=== PATIENT | female | born 1955 | race African-American/Black ===

== ENCOUNTER 2023-03-28 21:30 | Inpatient (IN) | payer MEDICARE, MEDICAID ==
[~2023-03-28] VITALS: Ht 152.4 cm; Wt 54.0 kg
[2023-03-28 22:11] LABS: BASOPHILS % (AUTO) 0.4 % (0.0-2.0); EOSINOPHILS % (AUTO) 1.5 % (1.0-6.0); HEMATOCRIT 41.3 % (36-46); HEMOGLOBIN 12.9 g/dL (12.0-16.0); LYMPHOCYTES # (AUTO) 2.6 K/uL (1.0-4.8); LYMPHOCYTES % (AUTO) 41.5 % (22.0-44.0); MEAN CORPUSCULAR HEMOGLOBIN 27.9 pg (26.0-34.0); MEAN CORPUSCULAR HGB CONC 31.3 G/dL (31.0-37.0); MEAN CORPUSCULAR VOLUME 89 fL (80-100); MONOCYTES # (AUTO) 0.5 K/uL (0.1-1.0); MONOCYTES % (AUTO) 7.5 % (2.0-9.0); NEUTROPHILS % (AUTO) 49.1 % (40.0-70.0); PLATELET COUNT (AUTO) 217 K/uL (150-450); RED BLOOD CELL COUNT(AUTO) 4.64 MIL/uL (4.00-5.20); RED CELL DISTRIBUTION WIDTH 17.7 % (11.5-14.5)
[2023-03-28 22:23] LABS: ANION GAP 8 mmol/L (8-16); CALCIUM, TOTAL 8.7 mg/dL (8.8-10.5); CARBON DIOXIDE 27 mmol/L (22-29); CHLORIDE 105 mmol/L (98-107); CREATININE 1.03 mg/dL (0.60-1.30); GLOMERULAR FILTR. RATE CALC > 60 mL/min (>60); GLUCOSE,RANDOM 130 mg/dL (70-110); POTASSIUM 3.6 mmol/L (3.5-5.1); SODIUM SERUM 140 mmol/L (136-145)
[2023-03-28 22:29] LABS: ALANINE AMINOTRANSFERASE 47 U/L (12-78); ALBUMIN 3.3 g/dL (3.4-5.0); ALKALINE PHOSPHATASE 108 U/L (46-116); ASPARTATE AMINOTRANSFERASE 28 U/L (15-37); BILIRUBIN,TOTAL 0.3 mg/dL (0.1-1.0); TOTAL PROTEIN, SERUM 6.9 g/dL (6.4-8.2)
[2023-03-28 22:32] LABS: AMPHET/METH SCREEN,URINE NEGATIVE (NEGATIVE); BARBITURATE SCREEN, URINE NEGATIVE (NEGATIVE); BENZODIAZEPINES SCREEN,URINE NEGATIVE (NEGATIVE); CANNABINOID SCREEN,URINE NEGATIVE (NEGATIVE); COCAINE SCREEN,URINE NEGATIVE (NEGATIVE); METHADONE SCREEN, URINE NEGATIVE (NEGATIVE); OPIATE SCREEN,URINE NEGATIVE (NEGATIVE); PHENCYCLIDINE SCREEN,URINE NEGATIVE (NEGATIVE)
[2023-03-28 23:23] LABS: COVID AG,FIA SOURCE NASAL SWAB
[2023-03-29] MEDS ORDERED: ZOLPIDEM TARTRATE 10 MG TABLET PO PRN (04:45)
[2023-03-29] MEDS ORDERED: LORazepam 2 MG TABLET PO PRN (04:45)
[2023-03-29] MEDS ORDERED: HALOPERIDOL 5 MG TABLET PO PRN (04:45)
[2023-03-29 09:45] VITALS: BP 122/89; PULSE 88; RESP 18; TEMP 97.2; O2SAT 100
[2023-03-29 21:34] VITALS: BP 152/83; PULSE 87; RESP 18; TEMP 98.3; O2SAT 99
[2023-03-29] MEDS ORDERED: MAG HYDROX/AL HYDROX/SIMETH ES 30 ML SUSPENSION UDCUP PO PRN (23:15)
[2023-03-29] MEDS ORDERED: IBUPROFEN 600 MG TABLET PO PRN (23:15)
[2023-03-29] MEDS ORDERED: ALBUTEROL SULFATE HFA 90 MCG/PUFF 8 GM INHALER IH PRN (23:15)
[2023-03-29] MEDS ORDERED: LOPERAMIDE HCL 2 MG CAPSULE PO PRN (23:15)
[2023-03-29] MEDS ORDERED: PETROLATUM,WHITE 28 GM JELLY TP PRN (23:15)
[2023-03-29] MEDS ORDERED: CloNIDine HCL 0.1 MG TABLET PO PRN (23:15)
[2023-03-29] MEDS ORDERED: ACETAMINOPHEN 325 MG TABLET PO PRN (23:15)
[2023-03-29] MEDS ORDERED: MAGNESIUM HYDROXIDE SUSPENSION 30 ML UDCUP PO PRN (23:15)
[2023-03-29] MEDS ORDERED: OMEPRAZOLE 20 MG CAPSULE PO PRN (23:15)
[2023-03-29] MEDS ORDERED: BACITRACIN 28 GM OINTMENT TP PRN (23:15)
[2023-03-29] MEDS ORDERED: ONDANSETRON HCL 4 MG TABLET PO PRN (23:15)
[2023-03-29] MEDS ORDERED: DOCUSATE SODIUM 100 MG CAPSULE PO PRN (23:15)
[2023-03-30 08:34] VITALS: BP 130/86; PULSE 95; RESP 17; TEMP 97.5; O2SAT 96
[2023-03-30 20:15] VITALS: BP 145/90; PULSE 91; RESP 18; TEMP 97.6; O2SAT 96
[2023-03-31 09:23] VITALS: BP 133/80; PULSE 92; RESP 18; TEMP 98.2; O2SAT 97
[2023-03-31 21:49] VITALS: BP 147/99; PULSE 99; RESP 16; TEMP 96.7; O2SAT 98
[2023-04-01 08:17] VITALS: BP 110/61; PULSE 62; RESP 18; TEMP 97.9; O2SAT 96
[2023-04-01] MEDS: RisperiDONE 0.5 MG TABLET PO SCH (16:04)
[2023-04-01 21:37] VITALS: BP 121/73; PULSE 89; RESP 18; TEMP 97.8; O2SAT 98
[2023-04-02 08:34] VITALS: BP 140/90; PULSE 100; RESP 17; TEMP 97.6
[2023-04-02] MEDS: RisperiDONE 0.5 MG TABLET PO SCH ×2 (09:23→16:30)
[2023-04-02 20:51] VITALS: BP 134/90; RESP 18; TEMP 97.1
[2023-04-02 21:58] LABS: APPEARANCE,URINE CLEAR (CLEAR); BILIRUBIN,URINE NEGATIVE (NEGATIVE); GLUCOSE, URINE (UA) NEGATIVE (NEGATIVE); KETONES,URINE NEGATIVE (NEGATIVE); LEUKOCYTE ESTERASE ,URINE LARGE (NEGATIVE); NITRATE,URINE NEGATIVE (NEGATIVE); OCCULT BLOOD,URINE NEGATIVE (NEGATIVE); PH,URINE 6.5 (5.0-8.0); PROTEIN,URINE NEGATIVE (NEGATIVE); SPECIFIC GRAVITIY, URINE 1.017 (1.003-1.030); UROBILINOGEN,URINE <=1.0 mg/dL (<=1.0)
[2023-04-02 22:15] LABS: BACTERIA,URINE Rare /HPF (None Seen); RBC,URINE None Seen /HPF (0-2); SQUAMOUS EPITHELIAL CELL,UR Rare /LPF (None Seen)
[2023-04-03 08:00] VITALS: BP 124/72; PULSE 89; RESP 18; TEMP 97.2; O2SAT 97
[2023-04-03] MEDS: RisperiDONE 0.5 MG TABLET PO SCH ×2 (09:47→17:52)
[2023-04-03 21:10] VITALS: BP 129/81; PULSE 96; RESP 18; TEMP 97; O2SAT 98
[2023-04-04 08:00] VITALS: BP 139/81; PULSE 90; RESP 18; TEMP 98; O2SAT 100
[2023-04-04] MEDS: RisperiDONE 0.5 MG TABLET PO SCH ×2 (09:01→16:24)
[2023-04-04 20:29] VITALS: RESP 17
[2023-04-05] MEDS: RisperiDONE 0.5 MG TABLET PO SCH ×2 (09:10→16:38)
[2023-04-05 09:35] VITALS: BP 143/90; PULSE 102; RESP 18; TEMP 97.6
[2023-04-05 21:34] VITALS: BP 131/75; PULSE 102; RESP 17; TEMP 97.9
[2023-04-06] MEDS: RisperiDONE 0.5 MG TABLET PO SCH ×2 (08:32→16:34)
[2023-04-06 09:17] VITALS: BP 123/70; PULSE 83; RESP 18; TEMP 97.1; O2SAT 98
[2023-04-06 20:30] VITALS: BP 149/62; PULSE 85; RESP 18; TEMP 98.2; O2SAT 96
[2023-04-07 08:00] VITALS: BP 121/81; PULSE 79; RESP 18; TEMP 97.9; O2SAT 97
[2023-04-07] MEDS: RisperiDONE 0.5 MG TABLET PO SCH ×2 (09:04→17:42)
[2023-04-07 21:18] VITALS: BP 129/77; PULSE 89; RESP 18; TEMP 97.2; O2SAT 100
[2023-04-08] MEDS: RisperiDONE 0.5 MG TABLET PO SCH ×2 (08:49→16:05)
[2023-04-08 09:38] VITALS: BP 139/86; PULSE 98; RESP 19; TEMP 97.3; O2SAT 98
[2023-04-08 20:58] VITALS: BP 124/78; PULSE 97; RESP 18; TEMP 97.2; O2SAT 100
[2023-04-09] MEDS: RisperiDONE 0.5 MG TABLET PO SCH ×2 (08:36→16:06)
[2023-04-09 09:12] VITALS: BP 120/73; PULSE 97; RESP 18; TEMP 97.7
[2023-04-09 21:29] VITALS: BP 121/76; PULSE 98; RESP 17; TEMP 97.4
[2023-04-10] MEDS: RisperiDONE 0.5 MG TABLET PO SCH ×2 (08:08→17:19)
[2023-04-10 09:12] VITALS: BP 133/95; PULSE 109; RESP 18; TEMP 97.6; O2SAT 97
[2023-04-10 22:08] VITALS: RESP 17
[2023-04-11] MEDS: RisperiDONE 0.5 MG TABLET PO SCH ×2 (08:08→16:26)
[2023-04-11 09:01] VITALS: BP 117/93; PULSE 79; RESP 16; TEMP 98.1; O2SAT 98
[2023-04-11 20:30] VITALS: RESP 18
[2023-04-12 08:15] VITALS: BP 137/72; PULSE 100; RESP 18; TEMP 97.2; O2SAT 96
[2023-04-12] MEDS: RisperiDONE 0.5 MG TABLET PO SCH ×2 (08:15→16:29)
[2023-04-12 21:34] VITALS: BP 141/86; PULSE 93; RESP 18; TEMP 97.3; O2SAT 99
[2023-04-13] MEDS: RisperiDONE 0.5 MG TABLET PO SCH ×2 (08:59→16:23)
[2023-04-13 09:14] VITALS: BP 146/87; PULSE 96; RESP 17; TEMP 97.2; O2SAT 100
[2023-04-13 20:30] VITALS: BP 122/86; PULSE 81; RESP 18; TEMP 97.6; O2SAT 100
[2023-04-14] MEDS: RisperiDONE 0.5 MG TABLET PO SCH ×2 (08:18→15:56)
[2023-04-14 10:36] VITALS: BP 136/70; PULSE 104; RESP 18; TEMP 97.4; O2SAT 98
[2023-04-14 23:18] VITALS: BP 111/71; PULSE 102; RESP 16; TEMP 97.4; O2SAT 98
[2023-04-15] MEDS: RisperiDONE 0.5 MG TABLET PO SCH ×2 (08:41→16:02)
[2023-04-15 10:13] VITALS: BP 136/79; PULSE 89; RESP 17; TEMP 97.4; O2SAT 100
[2023-04-15 22:08] VITALS: RESP 18
[2023-04-16 08:00] VITALS: BP 120/70; PULSE 70; RESP 18; TEMP 98; O2SAT 96
[2023-04-16] MEDS: RisperiDONE 0.5 MG TABLET PO SCH ×2 (08:38→16:33)
[2023-04-16 21:24] VITALS: BP 128/72; PULSE 81; RESP 19; TEMP 97.9; O2SAT 97
[2023-04-17 09:00] VITALS: BP 127/73; PULSE 100; RESP 18; TEMP 97
[2023-04-17] MEDS: RisperiDONE 0.5 MG TABLET PO SCH ×2 (09:35→16:46)
[2023-04-17 20:58] VITALS: BP 138/83; PULSE 68; RESP 17; TEMP 97.4; O2SAT 98
[2023-04-18 08:20] VITALS: BP 131/89; PULSE 112; RESP 18; TEMP 96.8
[2023-04-18] MEDS: RisperiDONE 0.5 MG TABLET PO SCH ×2 (08:44→16:24)
[2023-04-18 09:51] VITALS: BP 131/89; PULSE 112; RESP 18; TEMP 96.8; O2SAT 97
[2023-04-18 20:21] VITALS: BP 133/77; PULSE 96; RESP 18; TEMP 98.1; O2SAT 98
[2023-04-19 08:00] VITALS: BP 125/83; PULSE 123; RESP 16; TEMP 97.2; O2SAT 96
[2023-04-19] MEDS: RisperiDONE 0.5 MG TABLET PO SCH ×2 (08:35→17:41)
[2023-04-19 21:10] VITALS: BP 162/88; PULSE 99; RESP 16; TEMP 98
[2023-04-20 08:00] VITALS: BP 166/77; PULSE 108; RESP 19; TEMP 97.4; O2SAT 98
[2023-04-20] MEDS: RisperiDONE 0.5 MG TABLET PO SCH ×2 (09:17→16:17)
[2023-04-20 21:24] VITALS: BP 134/73; PULSE 94; RESP 18; TEMP 98.1; O2SAT 98
[2023-04-21] MEDS: RisperiDONE 0.5 MG TABLET PO SCH ×2 (07:56→15:56)
[2023-04-21 08:00] VITALS: BP 144/77; PULSE 97; RESP 17; TEMP 97.3; O2SAT 98
[2023-04-21 21:06] VITALS: BP 126/69; PULSE 91; RESP 17; TEMP 97.8; O2SAT 99
[2023-04-22 09:46] VITALS: BP 125/73; PULSE 98; RESP 18; TEMP 97.5; O2SAT 95
[2023-04-22] MEDS: RisperiDONE 0.5 MG TABLET PO SCH ×2 (09:53→17:07)
[2023-04-22 21:15] VITALS: BP 138/83; PULSE 95; RESP 17; TEMP 96.9; O2SAT 100
[2023-04-23] MEDS: RisperiDONE 0.5 MG TABLET PO SCH ×2 (08:15→16:33)
[2023-04-23 10:23] VITALS: BP 123/71; PULSE 95; RESP 18; TEMP 97.8; O2SAT 98
[2023-04-23 20:36] VITALS: BP 120/77; PULSE 92; RESP 18; TEMP 97.7
[2023-04-24 08:00] VITALS: BP 133/79; PULSE 111; RESP 18; TEMP 97.7; O2SAT 97
[2023-04-24] MEDS: RisperiDONE 0.5 MG TABLET PO SCH ×2 (10:24→17:09)
[2023-04-24 20:17] VITALS: BP 115/76; PULSE 85; RESP 16; TEMP 97.5; O2SAT 98
[2023-04-25] MEDS: MEMANTINE HCL 5 MG TABLET PO SCH ×2 (08:24→16:19)
[2023-04-25] MEDS: RisperiDONE 0.5 MG TABLET PO SCH ×2 (08:24→16:19)
[2023-04-25 10:14] VITALS: BP 160/83; PULSE 86; RESP 18; TEMP 97.3; O2SAT 98
[2023-04-25 20:25] VITALS: BP 137/84; PULSE 93; RESP 18; TEMP 97.2; O2SAT 99
[2023-04-26] MEDS: RisperiDONE 0.5 MG TABLET PO SCH ×2 (08:36→16:15)
[2023-04-26] MEDS: MEMANTINE HCL 5 MG TABLET PO SCH ×2 (08:36→16:15)
[2023-04-26 08:55] VITALS: BP 148/90; PULSE 90; RESP 19; TEMP 97.4; O2SAT 99
[2023-04-26 21:16] VITALS: BP 119/63; PULSE 90; RESP 18; TEMP 97.4; O2SAT 98
[2023-04-27] MEDS: RisperiDONE 0.5 MG TABLET PO SCH ×2 (08:41→16:11)
[2023-04-27] MEDS: MEMANTINE HCL 5 MG TABLET PO SCH ×2 (08:42→16:11)
[2023-04-27 09:00] VITALS: BP 131/85; PULSE 99; RESP 20; TEMP 97.5; O2SAT 97
[2023-04-27 20:30] VITALS: BP 149/77; PULSE 105; RESP 18; TEMP 97.5; O2SAT 99
[2023-04-28] MEDS: MEMANTINE HCL 5 MG TABLET PO SCH ×2 (08:57→16:11)
[2023-04-28] MEDS: RisperiDONE 0.5 MG TABLET PO SCH ×2 (08:58→16:11)
[2023-04-28 09:30] VITALS: BP 127/73; PULSE 104; RESP 17; TEMP 97.5; O2SAT 100
[2023-04-28 20:50] VITALS: BP 132/76; PULSE 92; RESP 20; TEMP 97.5
[2023-04-29] MEDS: RisperiDONE 0.5 MG TABLET PO SCH ×2 (08:14→16:16)
[2023-04-29] MEDS: MEMANTINE HCL 5 MG TABLET PO SCH ×2 (08:15→16:16)
[2023-04-29 08:20] VITALS: BP 100/50; PULSE 110; RESP 18; TEMP 97.4; O2SAT 99
[2023-04-29 20:01] VITALS: BP 124/84; PULSE 94; RESP 18; TEMP 97.8; O2SAT 99
[2023-04-30] MEDS: RisperiDONE 0.5 MG TABLET PO SCH ×2 (09:36→17:21)
[2023-04-30] MEDS: MEMANTINE HCL 5 MG TABLET PO SCH ×2 (09:36→17:21)
[2023-04-30 09:50] VITALS: BP 118/83; PULSE 106; RESP 19; TEMP 97.6; O2SAT 96
[2023-04-30 20:43] VITALS: BP 125/85; PULSE 84; RESP 18; TEMP 97.2; O2SAT 98
[2023-05-01] MEDS: MEMANTINE HCL 5 MG TABLET PO SCH ×2 (08:32→17:08)
[2023-05-01] MEDS: RisperiDONE 0.5 MG TABLET PO SCH ×2 (08:32→17:07)
[2023-05-01 09:40] VITALS: BP 119/88; PULSE 93; RESP 16; TEMP 98.1; O2SAT 100
[2023-05-01 23:24] VITALS: BP 125/74; PULSE 88; RESP 18; TEMP 97.8; O2SAT 100
[2023-05-02] MEDS: MEMANTINE HCL 5 MG TABLET PO SCH ×2 (08:18→16:03)
[2023-05-02] MEDS: RisperiDONE 0.5 MG TABLET PO SCH ×2 (08:18→16:03)
[2023-05-02 09:11] VITALS: BP 117/79; PULSE 75; RESP 18; TEMP 97; O2SAT 99
[2023-05-02 20:25] VITALS: BP 135/86; PULSE 103; RESP 18; TEMP 98.1; O2SAT 99
[2023-05-03] MEDS: MEMANTINE HCL 5 MG TABLET PO SCH ×2 (08:14→16:13)
[2023-05-03] MEDS: RisperiDONE 0.5 MG TABLET PO SCH ×2 (08:14→16:13)
[2023-05-03 10:57] VITALS: BP 143/75; PULSE 66; RESP 18; TEMP 97.2; O2SAT 98
[2023-05-03 20:36] VITALS: BP 116/69; PULSE 91; RESP 18; TEMP 97.5; O2SAT 99
[2023-05-04] MEDS: RisperiDONE 0.5 MG TABLET PO SCH ×2 (08:14→16:28)
[2023-05-04] MEDS: MEMANTINE HCL 5 MG TABLET PO SCH ×2 (08:14→16:27)
[2023-05-04 09:37] VITALS: BP 134/71; PULSE 74; RESP 18; TEMP 97.5; O2SAT 98
[2023-05-04 20:41] VITALS: BP 126/81; PULSE 82; RESP 18; TEMP 98.1
[2023-05-05] MEDS: RisperiDONE 0.5 MG TABLET PO SCH ×2 (07:58→16:04)
[2023-05-05] MEDS: MEMANTINE HCL 5 MG TABLET PO SCH ×2 (07:58→16:04)
[2023-05-05 10:20] VITALS: BP 140/90; PULSE 89; RESP 18; TEMP 97.2; O2SAT 98
[2023-05-05 20:21] VITALS: BP 134/72; RESP 18; TEMP 97.2; O2SAT 98
[2023-05-06 09:00] VITALS: BP 150/79; PULSE 106; RESP 19; TEMP 97.3
[2023-05-06] MEDS: MEMANTINE HCL 5 MG TABLET PO SCH ×2 (09:38→16:28)
[2023-05-06] MEDS: RisperiDONE 0.5 MG TABLET PO SCH ×2 (09:38→16:28)
[2023-05-06 21:10] VITALS: BP 111/74; PULSE 94; RESP 18; TEMP 97.6
[2023-05-07 08:47] VITALS: BP 134/84; PULSE 104; RESP 17; TEMP 96.7; O2SAT 98
[2023-05-07] MEDS: RisperiDONE 0.5 MG TABLET PO SCH ×2 (11:48→17:06)
[2023-05-07] MEDS: MEMANTINE HCL 5 MG TABLET PO SCH ×2 (11:48→17:06)
[2023-05-07 20:26] VITALS: BP 108/75; PULSE 100; RESP 18; TEMP 97.7; O2SAT 99
[2023-05-08] MEDS: MEMANTINE HCL 5 MG TABLET PO SCH ×2 (08:26→16:16)
[2023-05-08] MEDS: RisperiDONE 0.5 MG TABLET PO SCH ×2 (08:26→16:16)
[2023-05-08 08:40] VITALS: BP 128/87; PULSE 91; RESP 19; TEMP 97; O2SAT 97
[2023-05-08 20:00] VITALS: BP 111/74; PULSE 98; RESP 19; TEMP 97.8; O2SAT 100
[2023-05-09 08:55] VITALS: BP 119/70; PULSE 93; RESP 18; TEMP 97.5; O2SAT 99
[2023-05-09] MEDS: RisperiDONE 0.5 MG TABLET PO SCH ×2 (09:06→17:09)
[2023-05-09] MEDS: MEMANTINE HCL 5 MG TABLET PO SCH ×2 (09:06→17:08)
[2023-05-09 21:06] VITALS: BP 121/76; PULSE 91; RESP 18; TEMP 97.6; O2SAT 98
[2023-05-10 08:29] VITALS: BP 141/86; PULSE 78; RESP 18; TEMP 98.1
[2023-05-10] MEDS: MEMANTINE HCL 5 MG TABLET PO SCH ×2 (09:20→17:08)
[2023-05-10] MEDS: RisperiDONE 0.5 MG TABLET PO SCH ×2 (09:20→17:08)
[2023-05-10 20:31] VITALS: BP 125/75; PULSE 89; RESP 18; TEMP 96.8; O2SAT 98
[2023-05-11] MEDS: MEMANTINE HCL 5 MG TABLET PO SCH ×2 (08:21→16:06)
[2023-05-11] MEDS: RisperiDONE 0.5 MG TABLET PO SCH ×2 (08:21→16:06)
[2023-05-11 08:38] VITALS: BP 139/92; PULSE 82; RESP 18; TEMP 97.7; O2SAT 97
[2023-05-11 20:56] VITALS: BP 113/74; PULSE 108; RESP 18; TEMP 97.8; O2SAT 100
[2023-05-12] MEDS: RisperiDONE 0.5 MG TABLET PO SCH ×2 (08:09→16:31)
[2023-05-12] MEDS: MEMANTINE HCL 5 MG TABLET PO SCH ×2 (08:10→16:31)
[2023-05-12 09:05] VITALS: BP 134/90; PULSE 98; RESP 17; TEMP 97.9; O2SAT 99
[2023-05-12 20:49] VITALS: BP 131/78; PULSE 62; RESP 18; TEMP 97.1; O2SAT 98
[2023-05-13 08:00] VITALS: BP 133/67; PULSE 83; RESP 18; TEMP 98.1
[2023-05-13] MEDS: MEMANTINE HCL 5 MG TABLET PO SCH ×2 (08:19→17:06)
[2023-05-13] MEDS: RisperiDONE 0.5 MG TABLET PO SCH ×2 (08:19→17:06)
[2023-05-13 20:33] VITALS: BP 132/90; PULSE 89; RESP 18; TEMP 98; O2SAT 100
[2023-05-14] MEDS: RisperiDONE 0.5 MG TABLET PO SCH ×2 (08:53→16:45)
[2023-05-14] MEDS: MEMANTINE HCL 5 MG TABLET PO SCH ×2 (08:53→16:45)
[2023-05-14 09:49] VITALS: BP 128/72; PULSE 90; RESP 18; TEMP 96.8
[2023-05-14 20:43] VITALS: BP 122/67; PULSE 88; RESP 18; TEMP 97
[2023-05-15] MEDS: RisperiDONE 0.5 MG TABLET PO SCH ×2 (08:11→16:15)
[2023-05-15] MEDS: MEMANTINE HCL 5 MG TABLET PO SCH ×2 (08:12→16:15)
[2023-05-15 09:23] VITALS: BP 154/84; PULSE 100; RESP 17; TEMP 97.6
[2023-05-15 20:18] VITALS: BP 126/84; PULSE 88; RESP 18; TEMP 97.7; O2SAT 100
[2023-05-16 08:52] VITALS: BP 112/69; PULSE 96; RESP 19; TEMP 97; O2SAT 99
[2023-05-16] MEDS: RisperiDONE 0.5 MG TABLET PO SCH ×2 (08:58→17:16)
[2023-05-16] MEDS: MEMANTINE HCL 5 MG TABLET PO SCH ×2 (08:58→17:16)
[2023-05-16 20:24] VITALS: BP 136/82; PULSE 91; RESP 18; TEMP 97.4
[2023-05-17] MEDS: MEMANTINE HCL 5 MG TABLET PO SCH ×2 (08:11→15:57)
[2023-05-17] MEDS: RisperiDONE 0.5 MG TABLET PO SCH ×2 (08:11→15:57)
[2023-05-17 10:22] VITALS: BP 147/73; PULSE 82; RESP 18; TEMP 97.6; O2SAT 98
[2023-05-17 22:35] VITALS: BP 118/72; PULSE 102; RESP 18; TEMP 98.1; O2SAT 100
[2023-05-18] MEDS: RisperiDONE 0.5 MG TABLET PO SCH ×2 (08:17→15:58)
[2023-05-18] MEDS: MEMANTINE HCL 5 MG TABLET PO SCH ×2 (08:17→15:58)
[2023-05-18 09:54] VITALS: BP 133/67; PULSE 80; RESP 18; TEMP 96.7; O2SAT 100
[2023-05-18 20:23] VITALS: BP 135/89; PULSE 98; RESP 18; TEMP 98; O2SAT 100
[2023-05-19] MEDS: RisperiDONE 0.5 MG TABLET PO SCH ×2 (08:25→16:38)
[2023-05-19] MEDS: MEMANTINE HCL 5 MG TABLET PO SCH ×2 (08:25→16:38)
[2023-05-19 08:42] VITALS: BP 151/70; PULSE 99; RESP 18; TEMP 97.2; O2SAT 99
[2023-05-19 20:58] VITALS: BP 125/76; PULSE 85; RESP 18; TEMP 97.7
[2023-05-20] MEDS: MEMANTINE HCL 5 MG TABLET PO SCH ×2 (10:03→16:04)
[2023-05-20] MEDS: RisperiDONE 0.5 MG TABLET PO SCH ×2 (10:03→16:04)
[2023-05-20 11:08] VITALS: BP 128/80; PULSE 98; RESP 18; TEMP 97.1; O2SAT 98
[2023-05-20 20:36] VITALS: BP 139/79; PULSE 88; RESP 18; TEMP 97.1
[2023-05-21] MEDS: RisperiDONE 0.5 MG TABLET PO SCH ×2 (10:36→17:56)
[2023-05-21] MEDS: MEMANTINE HCL 5 MG TABLET PO SCH ×2 (10:36→17:56)
[2023-05-21 11:43] VITALS: BP 132/83; PULSE 80; RESP 19; TEMP 98; O2SAT 100
[2023-05-21 20:34] VITALS: BP 117/79; PULSE 85; RESP 17; TEMP 97.4; O2SAT 100
[2023-05-22] MEDS: MEMANTINE HCL 5 MG TABLET PO SCH (08:31)
[2023-05-22] MEDS: RisperiDONE 0.5 MG TABLET PO SCH ×2 (08:31→17:03)
[2023-05-22 10:39] VITALS: BP 139/81; PULSE 79; RESP 18; TEMP 98; O2SAT 100
[2023-05-22] MEDS: MEMANTINE HCL 10 MG TABLET PO SCH (17:03)
[2023-05-22] MEDS ORDERED: MEMA10TA11 PO (18:02)
[2023-05-22] MEDS ORDERED: RISP0.5T66 PO (18:05)
[2023-05-22 20:48] VITALS: BP 133/84; PULSE 99; RESP 18; TEMP 98.3; O2SAT 100
[2023-05-23] MEDS: MEMANTINE HCL 10 MG TABLET PO SCH (08:52)
[2023-05-23] MEDS: RisperiDONE 0.5 MG TABLET PO SCH (08:52)
[2023-05-23 09:42] VITALS: BP 124/76; PULSE 102; RESP 17; TEMP 97.5; O2SAT 97
[2023-05-23 09:48] VITALS: BP 126/76; PULSE 102; RESP 19; TEMP 97.5; O2SAT 100
== END 2023-05-23 14:35 | disposition home or self-care (01) | DRG 885 ==
LOC: EMS 21:31 → 3EX 03-29 05:00
PROVIDERS: ADMIT Psychiatry & Neurology Psychiatry; ATTEND Psychiatry & Neurology Psychiatry
DX: F20.9 Schizophrenia, unspecified (principal); F29 Unspecified psychosis not due to a substance or known physiological condition; G89.29 Other chronic pain; F41.9 Anxiety disorder, unspecified; K59.00 Constipation, unspecified; Z20.822 Contact with and (suspected) exposure to COVID-19; G47.00 Insomnia, unspecified; I10 Essential (primary) hypertension; Z79.899 Other long term (current) drug therapy; Z86.73 Personal history of transient ischemic attack (TIA), and cerebral infarction without residual deficits
CPT/HCPCS: 70450; 71045; 80053; 80307; 81001; 83036; 85025; 87081; 87086; 87186; 99285; G0378; G0480; 36415-L1; 36415-TC

== ENCOUNTER 2025-04-14 22:33 | Emergency (ER) | payer MEDICARE ==
[~2025-04-14] VITALS: Ht 160 cm; Wt 55.1 kg
[~2025-04-14 22:33] MED LIST: MEMA10TA24 PO; RISP0.5T80 PO
[2025-04-14 23:14] VITALS: TEMP 97.5
[2025-04-14] MEDS: LORazepam 2 MG TABLET PO ONE ×2 (23:40→23:44)
[2025-04-15 02:56] VITALS: BP 129/73; PULSE 77; RESP 16; O2SAT 99
[2025-04-21] MEDS ORDERED: MELA5TAB40 PO (17:39)
[2025-04-21] MEDS ORDERED: QUET25TA36 PO ×2 (17:39)
[2025-04-21] MEDS ORDERED: DULO20CA30 PO (17:39)
[2025-04-21] MEDS ORDERED: DONE-51 PO (17:39)
[2025-04-21] MEDS ORDERED: MEMA5TAB41 PO (17:39)
[2025-04-29] MEDS ORDERED: ASPI-1450 PO (09:57)
[2025-04-29] MEDS ORDERED: METO-325 PO (10:01)
[2025-04-29] MEDS ORDERED: BENA5TAB48 PO (10:02)
[2025-04-29] MEDS ORDERED: FAMO20 PO (10:03)
[2025-04-29] MEDS ORDERED: METF-1211 PO (10:04)
[2025-04-29] MEDS ORDERED: ATOR20TA PO (10:04)
== END 2025-04-15 04:43 | disposition home or self-care (01) ==
LOC: EMS 04-15 00:15
DX: S00.03XA Contusion of scalp, initial encounter (principal); I10 Essential (primary) hypertension; F25.9 Schizoaffective disorder, unspecified; Z79.899 Other long term (current) drug therapy; W22.01XA Walked into wall, initial encounter; Y93.89 Activity, other specified; Y92.89 Other specified places as the place of occurrence of the external cause; Y99.8 Other external cause status
CPT/HCPCS: 70450; 99284